=== PATIENT | female | born 1975 | race Caucasian/White ===

== ENCOUNTER 2018-10-13 07:03 | Observation (INO) | payer BC ==
[2018-10-13] MEDS: CEFAZOLIN 2 GM/50 ML (PMX) 50 ML IVPB ×2 (05:00→12:54)
[2018-10-13] MEDS: SOD CHLORIDE 0.9% 1,000 ML IV ×3 (05:00→22:12)
[2018-10-13 08:45] LABS: ADD MAN DIFF? NO
[2018-10-13 08:46] LABS: WHITE BLOOD COUNT 8.8 10^3/ul (4.8-10.8)
[2018-10-13 08:46] LABS: BASOPHILS % 0.3 % (0.0-2.0); EOSINOPHILS # 0.1 10^3/ul (0.0-0.5); HEMATOCRIT 32.1 % (37.0-47.0); HEMOGLOBIN 9.4 g/dl (12.0-16.0); LYMPHOCYTES # 2.3 10^3/ul (0.8-2.9); LYMPHOCYTES % 26.5 % (15.0-51.0); MEAN CORPUSCULAR HEMOGLOBIN 20.1 pg (29.0-33.0); MEAN CORPUSCULAR HGB CONC 29.3 g/dl (32.0-37.0); MEAN CORPUSCULAR VOLUME 68.7 fl (82.0-101.0); MONOCYTE # 0.5 10^3/ul (0.3-0.9); MONOCYTES % 5.2 % (0.0-11.0); NEUTROPHIL # 5.8 10^3/ul (1.6-7.5); NEUTROPHILS % 66.5 % (39.0-77.0); PLATELET COUNT 298 10^3/UL (140-415); RED BLOOD COUNT 4.67 10^6/ul (4.20-5.40); RED CELL DISTRIBUTION WIDTH 20.3 % (11.5-14.5)
[2018-10-13 08:48] LABS: HOLD TRANSMISSIONS 1
[2018-10-13 09:05] LABS: PROTIME 13.3 Sec (11.9-14.9)
[2018-10-13 09:06] LABS: PARTIAL THROMBOPLASTIN TIME 27.8 Sec (23.0-35.0)
[2018-10-13 09:09] LABS: ALANINE AMINOTRANSFERASE 16 IU/L (13-69); ALBUMIN 3.8 g/dl (3.3-4.9); ALBUMIN/GLOBULIN RATIO 1.15; ALKALINE PHOSPHATASE 153 IU/L (42-121); ANION GAP 6 (5-13); ASPARTATE AMINO TRANSFERASE 13 IU/L (15-46); BILIRUBIN,INDIRECT 0.4 mg/dl (0-1.1); BILIRUBIN,TOTAL 0.4 mg/dl (0.2-1.3); BLOOD UREA NITROGEN 10 mg/dl (7-20); CARBON DIOXIDE 27 mmol/L (21-31); CHLORIDE 108 mmol/L (97-110); CREATININE 0.39 mg/dl (0.44-1.00); Estimated GFR > 60 mL/min (>60); GLUCOSE 93 mg/dl (70-220); POTASSIUM 4.4 mmol/L (3.5-5.1); SODIUM 141 mmol/L (135-144); TOTAL PROTEIN 7.1 g/dl (6.1-8.1)
[2018-10-13] MEDS ORDERED: MEPERIDINE 25 MG INJ IV (10:30)
[2018-10-13] MEDS ORDERED: DIPHENHYDRAMINE 50 MG INJ IV (10:30)
[2018-10-13] MEDS ORDERED: hydrALAzine 20 MG INJ IV (10:30)
[2018-10-13] MEDS ORDERED: ONDANSETRON 4 MG INJ IV (10:30)
[2018-10-13] MEDS ORDERED: HYDROmorphONE 1 MG/5 ML IV SYRINGE IV (10:30)
[2018-10-13] MEDS ORDERED: LABETALOL HCL 20MG INJ IV (10:30)
[2018-10-13] MEDS ORDERED: MIDAZOLAM 1 MG/ML 2 ML INJ (10:41)
[2018-10-13] MEDS ORDERED: METOCLOPRAMIDE 10 MG INJ (10:41)
[2018-10-13] MEDS ORDERED: PROPOFOL 20 ML (10:46)
[2018-10-13] MEDS ORDERED: CEFAZOLIN 1 GM INJ (10:46)
[2018-10-13] MEDS ORDERED: ROCURONIUM 50 MG INJ (10:46)
[2018-10-13] MEDS: BUPIVACAINE 0.25% (MPF) 30 ML INJ (11:20)
[2018-10-13] MEDS ORDERED: GLYCOPYRROLATE 0.4 MG INJ (11:56)
[2018-10-13] MEDS ORDERED: ONDANSETRON 4 MG INJ (11:57)
[2018-10-13] MEDS ORDERED: NEOSTIGMINE 10 MG INJ (11:57)
[2018-10-13] MEDS ORDERED: FENTAnyl 50 MCG/ML VIAL (12:09)
[2018-10-13] MEDS: HYDROmorphONE 1 MG/5 ML IV SYRINGE IV ×3 (12:46→13:12)
[2018-10-13 13:10] LABS: ADD MAN DIFF? NO
[2018-10-13 13:12] LABS: BASOPHILS % 0.2 % (0.0-2.0); EOSINOPHILS # 0.1 10^3/ul (0.0-0.5); EOSINOPHILS % 0.5 % (0.0-7.0); HEMOGLOBIN 9.3 g/dl (12.0-16.0); LYMPHOCYTES # 2.5 10^3/ul (0.8-2.9); LYMPHOCYTES % 18.8 % (15.0-51.0); MEAN CORPUSCULAR HEMOGLOBIN 20.5 pg (29.0-33.0); MEAN CORPUSCULAR VOLUME 68.3 fl (82.0-101.0); MEAN PLATELET VOLUME 10.3 fl (7.4-10.4); MONOCYTE # 0.6 10^3/ul (0.3-0.9); MONOCYTES % 4.8 % (0.0-11.0); NEUTROPHIL # 9.8 10^3/ul (1.6-7.5); NEUTROPHILS % 75.2 % (39.0-77.0); PLATELET COUNT 293 10^3/UL (140-415); RED BLOOD COUNT 4.54 10^6/ul (4.20-5.40); RED CELL DISTRIBUTION WIDTH 20.4 % (11.5-14.5)
[2018-10-13 13:12] LABS: WHITE BLOOD COUNT 13.1 10^3/ul (4.8-10.8)
[2018-10-13 13:13] LABS: HOLD TRANSMISSIONS 1
[2018-10-13 13:39] LABS: ALANINE AMINOTRANSFERASE 19 IU/L (13-69); ALBUMIN 3.5 g/dl (3.3-4.9); ALBUMIN/GLOBULIN RATIO 1.12; ALKALINE PHOSPHATASE 145 IU/L (42-121); ANION GAP 7 (5-13); ASPARTATE AMINO TRANSFERASE 20 IU/L (15-46); BILIRUBIN,INDIRECT 0.2 mg/dl (0-1.1); BILIRUBIN,TOTAL 0.2 mg/dl (0.2-1.3); BLOOD UREA NITROGEN 11 mg/dl (7-20); CALCIUM 8.5 mg/dl (8.4-10.2); CARBON DIOXIDE 24 mmol/L (21-31); CHLORIDE 110 mmol/L (97-110); Estimated GFR > 60 mL/min (>60); GLUCOSE 111 mg/dl (70-220); SODIUM 141 mmol/L (135-144); TOTAL PROTEIN 6.6 g/dl (6.1-8.1)
[2018-10-13 13:41] LABS: CREATININE 0.37 mg/dl (0.44-1.00)
[2018-10-13] MEDS: HYDROCODONE/APAP (5/325) TAB PO (18:57)
[2018-10-13] MEDS: morphine 2 MG INJ IV (21:28)
[2018-10-13] MEDS ORDERED: ACETAMINOPHEN 500 MG TAB PO (22:30)
[2018-10-13] MEDS: CEFAZOLIN 2 GM in SOD CHLORIDE 0.9% 50 ML IVPB (22:55)
[2018-10-14] MEDS: HYDROCODONE/APAP (5/325) TAB PO ×3 (03:11→18:17)
[2018-10-14 05:23] LABS: ADD MAN DIFF? NO
[2018-10-14 05:25] LABS: BASOPHILS % 0.2 % (0.0-2.0); EOSINOPHILS # 0.1 10^3/ul (0.0-0.5); EOSINOPHILS % 0.5 % (0.0-7.0); HEMATOCRIT 28.7 % (37.0-47.0); HEMOGLOBIN 8.5 g/dl (12.0-16.0); LYMPHOCYTES # 2.1 10^3/ul (0.8-2.9); LYMPHOCYTES % 19.5 % (15.0-51.0); MEAN CORPUSCULAR HEMOGLOBIN 20.2 pg (29.0-33.0); MEAN CORPUSCULAR HGB CONC 29.6 g/dl (32.0-37.0); MEAN CORPUSCULAR VOLUME 68.2 fl (82.0-101.0); MEAN PLATELET VOLUME 11.3 fl (7.4-10.4); MONOCYTE # 0.6 10^3/ul (0.3-0.9); MONOCYTES % 5.8 % (0.0-11.0); NEUTROPHILS % 73.7 % (39.0-77.0); PLATELET COUNT 264 10^3/UL (140-415); RED BLOOD COUNT 4.21 10^6/ul (4.20-5.40); RED CELL DISTRIBUTION WIDTH 20.3 % (11.5-14.5)
[2018-10-14 05:25] LABS: WHITE BLOOD COUNT 10.9 10^3/ul (4.8-10.8)
[2018-10-14 05:40] LABS: ALANINE AMINOTRANSFERASE 23 IU/L (13-69); ALBUMIN 3.3 g/dl (3.3-4.9); ALBUMIN/GLOBULIN RATIO 1.13; ALKALINE PHOSPHATASE 131 IU/L (42-121); ANION GAP 12 (5-13); ASPARTATE AMINO TRANSFERASE 21 IU/L (15-46); BILIRUBIN,INDIRECT 0.5 mg/dl (0-1.1); BILIRUBIN,TOTAL 0.5 mg/dl (0.2-1.3); BLOOD UREA NITROGEN 9 mg/dl (7-20); CALCIUM 8.2 mg/dl (8.4-10.2); CARBON DIOXIDE 25 mmol/L (21-31); CHLORIDE 101 mmol/L (97-110); CREATININE 0.35 mg/dl (0.44-1.00); Estimated GFR > 60 mL/min (>60); GLUCOSE 99 mg/dl (70-220); POTASSIUM 3.8 mmol/L (3.5-5.1); SODIUM 138 mmol/L (135-144); TOTAL PROTEIN 6.2 g/dl (6.1-8.1)
[2018-10-14] MEDS: CEFAZOLIN 2 GM in SOD CHLORIDE 0.9% 50 ML IVPB ×2 (06:16→15:31)
[2018-10-14] MEDS: SOD CHLORIDE 0.9% 1,000 ML IV (06:17)
[2018-10-14] MEDS: morphine 2 MG INJ IV ×2 (08:32→15:26)
== END 2018-10-14 20:20 | disposition home or self-care (01) ==
LOC: SDS 07:03 → REC 10-14 07:55 → SDS 12:11 → REC 12:12 → MS1 10-14 07:56 → SDS 12:11 → MS1 14:28
DX: E04.9 Nontoxic goiter, unspecified (principal); E06.9 Thyroiditis, unspecified
CPT/HCPCS: 60240; 80053; 85025; 85610; 85730; 88307